=== PATIENT | male | born 1985 | race Two or more races ===

== ENCOUNTER 2017-09-17 15:06 | Inpatient (IN) | payer OTHER ==
[2017-09-17 15:16] VITALS: BMI 43.0
[2017-09-17 16:24] LABS: BASO % 0.5 % (0-2.0); EOS % 0.9 % (0-4.5); HEMATOCRIT 39.6 % (35.4-49); HEMOGLOBIN 12.7 GM/dL (11.7-16.9); LYMPH % 18.4 % (8-40); MCH 25.4 pg (25.7-33.7); MCHC 32.2 g/dl (32.0-35.9); MEAN CELL VOLUME 78.9 fl (80-96); MEAN PLT VOLUME 6.8 fl (7.5-11.1); MONO % 7.8 % (3.8-10.2); NEUT % 72.4 % (42.8-82.8); PLATELET COUNT 262 K/MM3 (134-434); RBC 5.02 M/mm3 (4.00-5.60); RDW 14.7 % (11.9-15.9); WHITE BLOOD COUNT 11.9 K/mm3 (4.0-10.0)
[2017-09-17 16:56] LABS: ALBUMIN 3.9 g/dl (3.4-5.0); ALK PHOS 62 U/L (45-117); ANION GAP 6 (8-16); BILIRUBIN,TOTAL 0.5 mg/dL (0.2-1.0); BLOOD UREA NITROGEN 11 mg/dL (7-18); CHLORIDE 103 mmol/L (98-107); CO2 31 mmol/L (21-32); CREATININE 1.1 mg/dL (0.7-1.3); GLUCOSE,RANDOM 91 mg/dL (74-106); POTASSIUM 3.9 mmol/L (3.5-5.1); SGOT/AST 38 U/L (15-37); SGPT/ALT 78 U/L (12-78); SODIUM 140 mmol/L (136-145); TOT PROT 7.7 g/dl (6.4-8.2)
[2017-09-17 17:40] LABS: COCAINE, UR NEGATIVE ng/ml (CUTOFF=300); METHADONE, UR NEGATIVE ng/ml (CUTOFF=300); OPIATES, URI NEGATIVE ng/ml (CUTOFF=300); PHENCYCLIDINE,URINE NEGATIVE ng/ml (CUTOFF=25); URINE AMPHETAMINES NEGATIVE ng/ml (CUTOFF=500); URINE BARBITURATES NEGATIVE ng/ml (CUTOFF=200); URINE BENZODIAZEPINES NEGATIVE ng/ml (CUTOFF=200)
[2017-09-17 17:50] LABS: ACETAMINOPHEN < 10 ug/ml (10.0-30.0); SALICYLATE < 4.0 mg/dl (0.0-30.0)
--- NOTE | 2017-09-17 18:26 | PDOC ---
Attending Attestation - Resident Resident Name: Pat Blevins - ED Attending Attestation I have performed the following: I have examined & evaluated the patient, The case was reviewed & discussed with the resident, I agree w/resident's findings & plan, Exceptions are as noted - HPI HPI: 09/17/17 18:24 31 M with h/o schizophrenia presents to ER with suicidal ideation. Pt reports being depressed due to family deaths and states that he has a plan to walk into traffic. Pt denies prior h/o suicide attempts. Denies HI. Denies AVH. Of note, pt has been off of his psych meds because he has been unable to pay for them. - Physicial Exam PE: 09/17/17 18:25 "GENERAL: Awake, alert, and fully oriented, in no acute distress HEAD: No signs of trauma EYES: PERRLA, EOMI, sclera anicteric, conjunctiva clear ENT: Auricles normal inspection, hearing grossly normal, nares patent, oropharynx clear without exudates. Moist mucosa NECK: Nontender, no stepoffs, Normal ROM, supple, no lymphadenopathy, JVD, or masses LUNGS: Breath sounds equal, clear to auscultation bilaterally. No wheezes, and no crackles HEART: Regular rate and rhythm, normal S1 and S2, no murmurs, rubs or gallops ABDOMEN: Soft, nontender, normoactive bowel sounds. No guarding, no rebound. No masses EXTREMITIES: Normal range of motion, no edema. No clubbing or cyanosis. No cords, erythema, or tenderness NEUROLOGICAL: Cranial nerves II through XII intact. 5/5 strength and sensation in all extremities, Normal speech, normal gait SKIN: Warm, Dry, normal turgor, no rashes or lesions noted. " - Medical Decision Making 09/17/17 18:25 31 M with suicidal ideation with plan. - Pt medically cleared - Psych consultation
--- NOTE | 2017-09-17 18:29 | PDOC ---
History of Present Illness - General Chief Complaint: Suicidal Stated Complaint: EVALUATION Time Seen by Provider: 09/17/17 15:33 History Source: Patient - History of Present Illness Initial Comments: 09/18/17 03:09 Patient is a 31 y.o. undomiciled male with a PMH of schizophrenia who presents to the ED today c/o suicidal ideation. Patient notes he was on Olanazpine for his schizophrenia however he stopped taking the medication 2-3 weeks previous as he was unable to afford it. Patient denies any active hallucinations/ delusions and states he wishes to kill himself by walking into [place]. Patient denies any active medical complaints including chest pain, shortness of breath, abdominal pain, fevers/chills, nausea/vomiting, diarrhea/constipation, dysuria/hematuria. Past History - Past Medical History Allergies/Adverse Reactions: Allergies Allergy/AdvReac Type Severity Reaction Status Date / Time No Known Allergies Allergy Verified 09/17/17 15:16 Home Medications: Ambulatory Orders Olanzapine [Zyprexa] 10 mg PO HS 09/17/17 COPD: No Psychiatric Problems: Yes - Suicide/Smoking/Psychosocial Hx Smoking History: Current every day smoker Number of Cigarettes Smoked Daily: 5 Information on smoking cessation initiated: No Review of Systems - Review of Systems Constitutional: Yes: Weight Stable. No: Chills, Fever HEENTM: No: Recent change in vision Respiratory: No: Cough, Shortness of Breath Cardiac (ROS): No: Chest Pain ABD/GI: No: Constipated, Diarrhea, Nausea, Vomiting : No: Burning, Dysuria *Physical Exam - Vital Signs Last Vital Signs Temp Pulse Resp BP Pulse Ox 98.5 F 94 H 18 131/80 99 09/17/17 15:13 09/17/17 15:13 09/17/17 15:13 09/17/17 15:13 09/17/17 15:13 - Physical Exam General Appearance: Yes: Nourished, Obese HEENT: positive: EOMI, JACKIE Neck: positive: Trachea midline, Supple Respiratory/Chest: positive: Lungs Clear Cardiovascular: positive: S1, S2 Extremity: positive: Normal Capillary Refill, Normal Inspection Integumentary: positive: Normal Color, Dry, Warm Neurologic: positive: mediation commissioner II-XII NML intact, Fully Oriented, Alert ED Treatment Course - LABORATORY CBC & Chemistry Diagram: 09/17/17 16:15 09/17/17 16:15 - ADDITIONAL ORDERS Additional order review: Laboratory Results 09/17/17 09/17/17 09/17/17 17:15 16:15 16:15 Sodium 140 Potassium 3.9 Chloride 103 Carbon Dioxide 31 Anion Gap 6 L BUN 11 Creatinine 1.1 Creat Clearance w eGFR > 60 Random Glucose 91 Calcium 9.0 Total Bilirubin 0.5 AST 38 H ALT 78 Alkaline Phosphatase 62 Total Protein 7.7 Albumin 3.9 TSH 0.50 Salicylates < 4.0 Opiates Screen Negative Methadone Screen Negative Acetaminophen < 10 L Barbiturate Screen Negative Phencyclidine Screen Negative Ur Amphetamines Screen Negative MDMA (Ecstasy) Screen Negative Benzodiazepines Screen Negative Cocaine Screen Negative U Marijuana (THC) Screen Negative 09/17/17 16:15 RBC 5.02 MCV 78.9 L MCHC 32.2 RDW 14.7 MPV 6.8 L Neutrophils % 72.4 Lymphocytes % 18.4 Monocytes % 7.8 Eosinophils % 0.9 Basophils % 0.5 - RADIOLOGY Radiology Studies Ordered: Category Date Time Status CXRPORT [CHEST X-RAY PORTABLE*] [RAD] Stat Radiology 09/17/17 15:51 Taken Medical Decision Making - Medical Decision Making 09/18/17 03:14 Patient is a 31 y.o. male with a PMH of Schizophrenia who presents to the ED with suicidal ideation. Patient has a loose plan of walking into traffic At presentation patient is well-appearing, A&O x4 and has no active medical complaints. Full work-up initiated including CBC/CMP, CXR, EKG, Urine Tox initiated in anticipation of transfer to psychiatric facility. EKG non- ischemic. Labs show no concerning finding. CXR shows no infiltrate/ consolidation. Urine Toxicology negative. Patient resting comfortably, ambulatory, tolerating PO intake. Case d/w Dr. Díaz (Psychiatry) will evaluate the patient on 09/17. Patient initially ED OBS, upgraded to full admission. 1:[address]. Patient counseled on plan of care. Transfer to inpatient medicine floor pending bed availability. Will continue to monitor with suicide precautions in place while in ED. *DC/Admit/Observation/Transfer Diagnosis at time of Disposition: Suicidal ideation - Referrals - Patient Instructions - Post Discharge Activity
--- NOTE | 2017-09-17 19:14 | PN ---
Teaching Attending Note Name of Resident: Jessica Lopez ATTENDING PHYSICIAN STATEMENT I saw and evaluated the patient. I reviewed the resident's note and discussed the case with the resident. I agree with the resident's findings and plan as documented. SUBJECTIVE: 31 M with hx. of depression/schizophrenia who presents with thoughts of walking into traffic. Denies any chest pain or pressure. No N/V/D. No fevers or chills. No dizziness or lightheadedness. OBJECTIVE: Physical: VS: Vital Signs Period Temp Pulse Resp BP Sys/Castro Pulse Ox Last 24 Hr 98.5 F 94 18 131/80 99 GEN: NAD, Resting in bed, AA0X3 HEENT: NCAT, PERRL, throat without erythema or exudates CARD: RRR S1, S2 RESP: CTAB ABD: BSx4, NTD to palpation EXT: - C/C/E CBCD WBC 11.9 K/mm3 (4.0-10.0) H 09/17/17 16:15 RBC 5.02 M/mm3 (4.00-5.60) 09/17/17 16:15 Hgb 12.7 GM/dL (11.7-16.9) 09/17/17 16:15 Hct 39.6 % (35.4-49) 09/17/17 16:15 MCV 78.9 fl (80-96) L 09/17/17 16:15 MCHC 32.2 g/dl (32.0-35.9) 09/17/17 16:15 RDW 14.7 % (11.9-15.9) 09/17/17 16:15 Plt Count 262 K/MM3 (134-434) 09/17/17 16:15 MPV 6.8 fl (7.5-11.1) L 09/17/17 16:15 CMP Sodium 140 mmol/L (136-145) 09/17/17 16:15 Potassium 3.9 mmol/L (3.5-5.1) 09/17/17 16:15 Chloride 103 mmol/L (98-107) 09/17/17 16:15 Carbon Dioxide 31 mmol/L (21-32) 09/17/17 16:15 Anion Gap 6 (8-16) L 09/17/17 16:15 BUN 11 mg/dL (7-18) 09/17/17 16:15 Creatinine 1.1 mg/dL (0.7-1.3) 09/17/17 16:15 Creat Clearance w eGFR > 60 (>60) 09/17/17 16:15 Random Glucose 91 mg/dL (74-106) 09/17/17 16:15 Calcium 9.0 mg/dL (8.5-10.1) 09/17/17 16:15 Total Bilirubin 0.5 mg/dL (0.2-1.0) 09/17/17 16:15 AST 38 U/L (15-37) H 09/17/17 16:15 ALT 78 U/L (12-78) 09/17/17 16:15 Alkaline Phosphatase 62 U/L (45-117) 09/17/17 16:15 Total Protein 7.7 g/dl (6.4-8.2) 09/17/17 16:15 Albumin 3.9 g/dl (3.4-5.0) 09/17/17 16:15 ASSESSMENT AND PLAN: 31 M with Suicidal Ideation 1.) Suicidal Ideation: - 1:1 Observation - Psych. Consult - C/W home psych meds 2.) DVT PPX - SCDs Place in Med-Sx
--- NOTE | 2017-09-17 19:20 | PDOC ---
*Physical Exam - Vital Signs Last Vital Signs Temp Pulse Resp BP Pulse Ox 98.5 F 94 H 18 131/80 99 09/17/17 15:13 09/17/17 15:13 09/17/17 15:13 09/17/17 15:13 09/17/17 15:13 09/17/17 19:19 31 YOM with h/o schizophrenia and homelessness p/w SI. Not taking olanzapine for the past couple of weeks. Planned to walk into traffic, no hallucinations, a /o x4, all labs negative. Aaliyah is aware of the patient and will most likely see the patient tomorrow. ED Treatment Course - LABORATORY CBC & Chemistry Diagram: 09/17/17 16:15 09/17/17 16:15 - ADDITIONAL ORDERS Additional order review: Laboratory Results 09/17/17 09/17/17 09/17/17 17:15 16:15 16:15 Sodium 140 Potassium 3.9 Chloride 103 Carbon Dioxide 31 Anion Gap 6 L BUN 11 Creatinine 1.1 Creat Clearance w eGFR > 60 Random Glucose 91 Calcium 9.0 Total Bilirubin 0.5 AST 38 H ALT 78 Alkaline Phosphatase 62 Total Protein 7.7 Albumin 3.9 TSH 0.50 Salicylates < 4.0 Opiates Screen Negative Methadone Screen Negative Acetaminophen < 10 L Barbiturate Screen Negative Phencyclidine Screen Negative Ur Amphetamines Screen Negative MDMA (Ecstasy) Screen Negative Benzodiazepines Screen Negative Cocaine Screen Negative U Marijuana (THC) Screen Negative 09/17/17 16:15 RBC 5.02 MCV 78.9 L MCHC 32.2 RDW 14.7 MPV 6.8 L Neutrophils % 72.4 Lymphocytes % 18.4 Monocytes % 7.8 Eosinophils % 0.9 Basophils % 0.5 Medical Decision Making - Medical Decision Making 09/17/17 19:45 Dr. Blevins spoke with Dr. Fischer who will see the patient tomorrow morning. Admission upgraded from ED Obs to full Obs Med/Surg. *DC/Admit/Observation/Transfer Diagnosis at time of Disposition: Suicidal ideation - Referrals - Patient Instructions - Post Discharge Activity
--- NOTE | 2017-09-17 20:50 | HP ---
CHIEF COMPLAINT: suicidal ideation PCP: does not have HISTORY OF PRESENT ILLNESS: 31 y/o M with PMH schizophrenia (on zyprexa for the past 10 yrs) who presents to the ED with suicidal ideation for the past 4 days. As per patient, he has had suicidal thoughts with active plan of walking into traffic over the last four days. He has been off his zyprexa for the past month, since he believed that he was "getting better without it." During this time, he also endorses racing thoughts and depression. States that he is currently living in a snf in [place] and was supposed to follow up at [facility] [facility], but never did. He was in the area visiting a friend when he developed such thoughts, so he decided it was best to check himself into the hospital. Pt endorses racing thoughts, loss of interest in activities once enjoyed, concentration problems, and lack of sleep over the past 2-3 days. Denies HERNANDES, fever, chills, changes in urinary or bowel function, palpitations, loss of energy, appetite changes, homicidal ideation, or recent auditory or visual hallucinations. Pt denies support group of family or friends. ER course was notable for: (1) QT WNL 427 (2) leukocytosis 11.9 (3) u tox (-) Recent Travel: none PAST MEDICAL HISTORY: schizophrenia PAST SURGICAL HISTORY: none Social History: Smoking: has smoked 5 cigs/day, past 10 yrs. No thoughts of quitting or cutting back Alcohol: denies Drugs: denies Family History: denies Allergies No Known Allergies Allergy (Verified 09/17/17 15:16) HOME MEDICATIONS: Home Medications Medication Instructions Recorded Olanzapine [Zyprexa] 10 mg PO HS 09/17/17 REVIEW OF SYSTEMS CONSTITUTIONAL: Absent: fever, chills, diaphoresis, generalized weakness, malaise, loss of appetite, weight change HEENT: Absent: rhinorrhea, nasal congestion, throat pain, throat swelling, difficulty swallowing, mouth swelling, ear pain, eye pain, visual changes CARDIOVASCULAR: Absent: chest pain, syncope, palpitations, irregular heart rate, lightheadedness , peripheral edema RESPIRATORY: Absent: cough, shortness of breath, dyspnea with exertion, orthopnea, wheezing, stridor, hemoptysis GASTROINTESTINAL: Absent: abdominal pain, abdominal distension, nausea, vomiting, diarrhea, constipation, melena, hematochezia GENITOURINARY: Absent: dysuria, frequency, urgency, hesitancy, hematuria, flank pain, genital pain MUSCULOSKELETAL: Absent: myalgia, arthralgia, joint swelling, back pain, neck pain SKIN: Absent: rash, itching, pallor HEMATOLOGIC/IMMUNOLOGIC: Absent: easy bleeding, easy bruising, lymphadenopathy, frequent infections ENDOCRINE: Absent: unexplained weight gain, unexplained weight loss, heat intolerance, cold intolerance NEUROLOGIC: Absent: headache, focal weakness or paresthesias, dizziness, unsteady gait, seizure, mental status changes, bladder or bowel incontinence PSYCHIATRIC: +depression, suicidal ideation Absent: anxiety, depression, suicidal or homicidal ideation, hallucinations. PHYSICAL EXAMINATION Vital Signs - 24 hr 09/17/17 15:13 Temperature 98.5 F Pulse Rate 94 H Respiratory 18 Rate Blood Pressure 131/80 O2 Sat by Pulse 99 Oximetry (%) GENERAL: Resting comforably in bed, appears guarded. Awake, alert, and fully oriented, in no acute distress. HEAD: Normal with no signs of trauma. EYES: Pupils equal, round and reactive to light, extraocular movements intact, sclera anicteric, conjunctiva clear. EARS, NOSE, THROAT: Ears normal, nares patent, oropharynx clear without exudates. Moist mucous membranes. NECK: Normal range of motion, supple LUNGS: Breath sounds equal, clear to auscultation bilaterally. No wheezes, and no crackles. No accessory muscle use. HEART: Regular rate and rhythm, normal S1 and S2 without murmur, rub or gallop. ABDOMEN: Soft, nontender, not distended, normoactive bowel sounds, no guarding, no rebound, no masses. MUSCULOSKELETAL: Normal range of motion at all joints. No bony deformities or tenderness. LOWER EXTREMITIES: 2+ posterior tibial pulses, warm, well-perfused. No calf tenderness. No peripheral edema. NEUROLOGICAL: Cranial nerves II-XII intact. PSYCHIATRIC: Cooperative. Guarded Laboratory Results 09/17/17 09/17/17 09/17/17 16:15 16:15 16:15 WBC 11.9 H Hgb 12.7 Hct 39.6 Plt Count 262 Sodium 140 Potassium 3.9 Chloride 103 Carbon Dioxide 31 BUN 11 Creatinine 1.1 Random Glucose 91 Salicylates < 4.0 Opiates Screen Methadone Screen Acetaminophen < 10 L Barbiturate Screen Phencyclidine Screen Ur Amphetamines Screen MDMA (Ecstasy) Screen Benzodiazepines Screen Cocaine Screen U Marijuana (THC) Screen 09/17/17 17:15 WBC Hgb Hct Plt Count Sodium Potassium Chloride Carbon Dioxide BUN Creatinine Random Glucose Salicylates Opiates Screen Negative Methadone Screen Negative Acetaminophen Barbiturate Screen Negative Phencyclidine Screen Negative Ur Amphetamines Screen Negative MDMA (Ecstasy) Screen Negative Benzodiazepines Screen Negative Cocaine Screen Negative U Marijuana (THC) Screen Negative EKG: QTc 427, normal sinus rhythm with sinus arrythmia ASSESSMENT/PLAN: 31 y/o M with PMH schizophrenia (on zyprexa for the past 10 yrs) who presents to the ED with suicidal ideation for the past 4 days. As per patient, he has had suicidal thoughts with active plan of walking into traffic over the last four days. Pt admitted to med-surg for suicidal ideation. #Suicidal ideation -Pt with active suicidal plan -Psych consult- Dr. Coronado -1:1 sitter #h/o Schizophrenia -Continued on Zyprexa home dose 10mg PO HS, as pt Qtc WNL -However, continue to monitor for QT prolongation #PPX DVT: early ambulation #F/E/N Does not need fluids at this time Monitor electrolytes Regular diet #Dispo med-surg Visit type - Emergency Visit Emergency Visit: Yes ED Registration Date: 09/17/17 Care time: The patient presented to the Emergency Department on the above date and was hospitalized for further evaluation of their emergent condition. - New Patient This patient is new to me today: Yes Date on this admission: 09/17/17 - Critical Care Critical Care patient: No
[2017-09-17] MEDS ORDERED: OLANZapine 10 MG TABLET PO SCH (22:00)
[2017-09-17] MEDS ORDERED: OLANZapine 10 MG TABLET ONE (22:14)
[2017-09-18 08:09] LABS: BASO % 0.5 % (0-2.0); EOS % 2.3 % (0-4.5); HEMOGLOBIN 12.7 GM/dL (11.7-16.9); LYMPH % 28.4 % (8-40); MCH 25.4 pg (25.7-33.7); MCHC 31.9 g/dl (32.0-35.9); MEAN CELL VOLUME 79.6 fl (80-96); MONO % 8.1 % (3.8-10.2); NEUT % 60.7 % (42.8-82.8); PLATELET COUNT 254 K/MM3 (134-434); RBC 5.02 M/mm3 (4.00-5.60); RDW 14.8 % (11.9-15.9); WHITE BLOOD COUNT 10.8 K/mm3 (4.0-10.0)
--- NOTE | 2017-09-18 10:35 | CON.PSY ---
Psychiatry Consult Chief Complaint: Patient came to ER with complaints of wanting to kill himself. Reports began hearing voices telling him to kill himself. Stopped taking his psych meds. Hade been on Zyprexa. Gets [address] at [address] Symptoms: reports: Self destructive thoughts, Hallucinations - Previous Psychiatric Treatment Outpatient: Less than 6 mos ago Inpatient: 2 or more prior admissions - Previous Substance Abuse Treatment Outpatient: None Inpatient: None - Reason for Previous Treatment Reason for Previous Treatment: Psychotic Episode - Current Medications Current Medications: Active Medications Olanzapine (Zyprexa -) 10 mg PO [facility] Last Admin: 09/17/17 22:22 Dose: 10 mg - Allergies Allergies: Allergies Allergy/AdvReac Type Severity Reaction Status Date / Time No Known Allergies Allergy Verified 09/17/17 15:16 - Current Living Status Usual Living Arrangement: Alone - Current Mental Status Evaluation Appearance: Well Groomed Attitude: Cooperative - Affect Affect: Constrictive Appropriateness: Appropriate to Content - Mood Mood: Depressed - Speech/Language Expressive: Coherent - Psychomotor Activity Psychomotor Activity: Normal - Thought Process Thought Process: Circumstantial - Thought Content Hallucinations: Present Type: Auditory Delusions: Absent - Self Perception Self Perception: No Impairment - Cognition Attention: Alert Orientation: Time Memory, Immediate Recall: Intact Memory, Short Term: 2/3 Memory, Remote with Promptin/3 - Concentration Serial Sevens Intact: No Simple Calculations Intact: No - Abstraction Proverb Interpretation: Impaired Judgement: Moderately Impaired - Insight Insight: Impaired - Impulse Control Impulse Control: Severly Impaired - Suicidal Ideation Suicidal Ideation: Yes - Homicidal Ideation Homicidal Ideation: No Assessment/Plan 1) Refer to in patient psych [facility].
--- NOTE | 2017-09-18 13:04 | EKG ---
Test Reason : Blood Pressure : / mmHG Vent. Rate : 076 BPM Atrial Rate : 076 BPM P-R Int : 134 ms QRS Dur : 088 ms QT Int : 380 ms P-R-T Axes : 038 056 034 degrees QTc Int : 427 ms NORMAL SINUS RHYTHM WITH SINUS ARRHYTHMIA NORMAL ECG NO PREVIOUS ECGS AVAILABLE Confirmed by MARCELINA STEWART MD ([id number]) on 09/18/2017 1:04:14 PM Referred By: Confirmed By:MARCELINA STEWART MD
--- NOTE | 2017-09-18 14:44 | PN ---
Teaching Attending Note Name of Resident: Geetha Aguirre ATTENDING PHYSICIAN STATEMENT I saw and evaluated the patient. I reviewed the resident's note and discussed the case with the resident. I agree with the resident's findings and plan as documented. SUBJECTIVE:pt states he feels very depressed and wants to kill himself. states he was thinking of walking in front of a train which he attempted to do in the past but a friend pulled him out of the way. Denies Cp, SOB, fever, chills, dysuria, cough, N/V/C/D. denies homicidal thoughts, denies visual/auditory/ tactile hallucinations. hs been in an inpatient psychiatric facility in the past with good results. was started on zyprexa however he stopped taking it this past month. OBJECTIVE: Last Vital Signs Temp Pulse Resp BP Pulse Ox 99.6 F 85 16 139/79 100 09/18/17 12:38 09/18/17 12:38 09/18/17 12:38 09/18/17 12:38 09/18/17 12:38 General NAD, flat affect CV S1 S2 RRR no murmur/rub/gallop Lungs CTA B/L no wheezing/rales/rhonchi Abdomen soft NT/ND Extremiteis no pedal edema ASSESSMENT AND PLAN: 31yo M with PMH schizophrenia came to the hospital with suicidal idealizations. 1. Suicidal Idealizations- continues to have suicidal thoughts and plan. pt would benefit from inpatient psychiatric evaluation. psychiatric evaluation. will need 1:1 observation while at this facility. utox negative 2. Leukocytosis- liekly stress induced. afebrile. asymptomatic. CXR clear. no indication for abx at this time 3. Schizophrenia- cont zyprexa 4. DVT ppx- EAM 5. Pt is medically cleared for placement in psychiatric center
--- NOTE | 2017-09-18 19:11 | PN ---
Physical Exam: SUBJECTIVE: Patient seen and examined. Says he has "suicidal ideations". He states he had thoughts of jumping in front of a train. Says he had previous suicidal attempts by jumping in front of a train but friend saved him. He says he started feeling this way ever since stopping his Zyprexa. He said he stopped because he felt he didn't need it anymore. Denies chest pain, auditory hallucinations, visual hallucinations, sob, dizziness, nausea, vomiting, diarrhea. OBJECTIVE: Vital Signs Period Temp Pulse Resp BP Sys/Castro Pulse Ox Last 24 Hr 97.7 F-99.6 F 72-89 16-18 97-153/51-85 95-100 GENERAL: The patient is awake, alert, and fully oriented, in no acute distress. HEAD: Normal with no signs of trauma. EYES: PERRL, extraocular movements intact, sclera anicteric, conjunctiva clear. No ptosis. ENT: oropharynx clear without exudates, moist mucous membranes. NECK: supple. LUNGS: Breath sounds equal, clear to auscultation bilaterally, no wheezes, no crackles, no accessory muscle use. HEART: Regular rate and rhythm, S1, S2 without murmur, rub or gallop. ABDOMEN: Soft, nontender, nondistended, normoactive bowel sounds, no guarding, no rebound EXTREMITIES: 2+ pulses, warm, well-perfused, no edema. SKIN: Warm, dry, normal turgor, no rashes or lesions noted Laboratory Results - last 24 hr 09/18/17 07:42 WBC 10.8 H RBC 5.02 Hgb 12.7 Hct 40.0 MCV 79.6 L MCH 25.4 L MCHC 31.9 L RDW 14.8 Plt Count 254 MPV 7.0 L Neutrophils % 60.7 Lymphocytes % 28.4 D Monocytes % 8.1 Eosinophils % 2.3 D Basophils % 0.5 Active Medications Generic Name Dose Route Start Last Admin Trade Name Freq PRN Reason Stop Dose Admin Olanzapine 10 mg 09/17/17 22:00 09/17/17 22:22 Zyprexa - PO 10 mg HS [facility] Administration ASSESSMENT/PLAN: 31 y/o M with PMH schizophrenia (on zyprexa for the past 10 yrs) who presents to the ED with suicidal ideation for the past 4 days. Pt admitted to med-surg for suicidal ideation. #Suicidal ideation -Pt with active suicidal plan -off Zyprexa for over 1 month -Psych consult- Dr. Fischer -Refer to in patient psych [facility] as per Dr. Fischer -1:1 sitter -Utox negative #Leukocytosis -improving, now 10.8 -likely stress induced #h/o Schizophrenia -Continued on Zyprexa home dose 10mg PO HS, as pt Qtc WNL -However, continue to monitor for QT prolongation #PPX DVT: early ambulation #F/E/N Does not need fluids at this time Monitor electrolytes Regular diet #Dispo pending inpatient psych transfer. Visit type - Emergency Visit Emergency Visit: Yes ED Registration Date: 09/17/17 Care time: The patient presented to the Emergency Department on the above date and was hospitalized for further evaluation of their emergent condition. - New Patient This patient is new to me today: Yes Date on this admission: 09/18/17 - Critical Care Critical Care patient: No
[2017-09-18] MEDS: OLANZapine 5 MG TABLET PO SCH (22:38)
--- NOTE | 2017-09-19 07:19 | PN ---
Physical Exam: SUBJECTIVE: Patient seen and examined. No acute events overnight. Says he has suicidal ideations. Has active plans to kill himself. Does not have homicidal ideations. OBJECTIVE: Vital Signs Period Temp Pulse Resp BP Sys/Castro Pulse Ox Last 24 Hr 98.9 F-99.6 F 78-89 16-18 97-153/51-79 95-100 GENERAL: The patient is awake, alert, and fully oriented, in no acute distress. HEAD: Normal with no signs of trauma. EYES: PERRL, extraocular movements intact, sclera anicteric, conjunctiva clear. No ptosis. ENT: oropharynx clear without exudates, moist mucous membranes. NECK: supple. LUNGS: Breath sounds equal, clear to auscultation bilaterally, no wheezes, no crackles, no accessory muscle use. HEART: Regular rate and rhythm, S1, S2 without murmur, rub or gallop. ABDOMEN: Soft, nontender, nondistended, normoactive bowel sounds, no guarding, no rebound EXTREMITIES: 2+ pulses, warm, well-perfused, no edema. SKIN: Warm, dry, normal turgor, no rashes or lesions noted Laboratory Results - last 24 hr 09/18/17 07:42 WBC 10.8 H RBC 5.02 Hgb 12.7 Hct 40.0 MCV 79.6 L MCH 25.4 L MCHC 31.9 L RDW 14.8 Plt Count 254 MPV 7.0 L Neutrophils % 60.7 Lymphocytes % 28.4 D Monocytes % 8.1 Eosinophils % 2.3 D Basophils % 0.5 Active Medications Generic Name Dose Route Start Last Admin Trade Name Freq PRN Reason Stop Dose Admin Olanzapine 10 mg 09/18/17 21:44 09/18/17 22:38 Zyprexa - PO 10 mg HS [facility] Administration ASSESSMENT/PLAN: 31 y/o M with PMH schizophrenia (on zyprexa for the past 10 yrs) who presents to the ED with suicidal ideation for the past week. Pt admitted to med-surg for suicidal ideation. #Suicidal ideation -Pt with active suicidal plan -off Zyprexa for over 1 month -Psych consult- Dr. Fischer -Refer to [facility] patient psych [facility] as per Dr. Fischer -1:1 sitter -Utox negative #Leukocytosis -improving -likely stress induced #h/o Schizophrenia -Continued on Zyprexa home dose 10mg PO HS, as pt Qtc WNL -However, continue to monitor for QT prolongation #PPX DVT: early ambulation #F/E/N Does not need fluids at this time Monitor electrolytes Regular diet #Dispo pending inpatient psych transfer.
--- NOTE | 2017-09-19 15:09 | PN ---
Teaching Attending Note Name of Resident: Lis Martinez ATTENDING PHYSICIAN STATEMENT Time of evaluation: 11:15 AM I saw and evaluated the patient. I reviewed the resident's note and discussed the case with the resident. I agree with the resident's findings and plan as documented. SUBJECTIVE: Patient seen and examined. currently denies active SI, reports feels better. OBJECTIVE: Vital Signs Period Temp Pulse Resp BP Sys/Castro Pulse Ox Last 24 Hr 98.0 F-98.9 F 71-89 18-18 97-153/48-72 95-98 Intake & Output 09/16/17 09/17/17 09/18/17 09/19/17 23:59 23:59 23:59 23:59 Intake Total 240 Balance 240 Weight 300 lb 300 lb general: lying in bed in no acute distress Home Medication List Medication Instructions Recorded Confirmed Type Olanzapine [Zyprexa] 10 mg PO HS 09/17/17 09/18/17 History Active Medications Generic Name Dose Route Start Last Admin Trade Name Freq PRN Reason Stop Dose Admin Olanzapine 10 mg 09/18/17 21:44 09/18/17 22:38 Zyprexa - PO 10 mg HS [facility] Administration ASSESSMENT AND PLAN: 31yo M with PMH schizophrenia came to the hospital with suicidal ideation -Suicidal ideation -leucocytosis, suspect reactive resolved -Schizophrenia Plan: Psych input noted. 1;1, Zyprexa. WBC improved. Await d/c to inpatient psych when bed available. Plan discussed with patient and questions answered.
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
[2017-09-19 18:55] LABS: URINE APPEARANCE CLEAR; URINE BILIRUBIN NEGATIVE (NEGATIVE); URINE BLOOD NEGATIVE (NEGATIVE); URINE COLOR LTYELLOW; URINE GLUCOSE (UA) NEGATIVE (NEGATIVE); URINE KETONE NEGATIVE (NEGATIVE); URINE LEUK ESTERASE NEGATIVE (NEGATIVE); URINE NITRITE NEGATIVE (NEGATIVE); URINE PROTEIN NEGATIVE (NEGATIVE); URINE UROBILINOGEN NEGATIVE mg/dL (0.2-1.0)
[2017-09-19 21:17] VITALS: BP 142/81; PULSE 78; TEMP 98.5
[2017-09-19] MEDS: OLANZapine 5 MG TABLET PO SCH (21:18)
== END 2017-09-19 22:06 | disposition short-term general hospital (02) | DRG 756 ==
LOC: JER 15:06 → JERBED 18:29 → OBSVTOIN 20:45 → J5S 09-18 19:57
PROVIDERS: ADMIT Internal Medicine; ATTEND Hospitalist
DX: R45.851 Suicidal ideations (principal); E66.9 Obesity, unspecified; Z68.41 Body mass index [BMI] 40.0-44.9, adult; F20.9 Schizophrenia, unspecified
CPT/HCPCS: 36415; 71045-TC; 80053; 80307; 81003; 84443; 85025; 93005; 93010; 99284-25; G0378